=== PATIENT | male | born 1935 | race Caucasian/White ===

== ENCOUNTER 2016-10-07 11:27 | Inpatient (IN) | payer MEDICARE, BC ==
[~2016-10-07] VITALS: Ht 185.4 cm; Wt 113.6 kg
--- NOTE | 2016-10-08 19:19 | ER ---
ADMIT: 10/07/2016 RM/LOC: 423 [facility] MR#: [id number] 2620 [facility] [address] [place], [place] [address] MARIA ESTHER ALLEN [address] [place] [address] Emergency Room Report SEX: M AGE: 80 : 1935 DATE: 10/07/2016 ADDENDUM: A 80-year-old white male with multiple comorbidities, hypertension, and I think he has history lung disease, COPD, GERD as well as heart failure. He also has, I think, valvular disease, not need to be operative on. I refer you to old records for that. He evidently does [facility] as well. At this time, his CBC is negative. His chemistry shows a potassium of 3.0. Chest x-ray, cardiomegaly. Troponin is negative. His lactate is negative. He is not septic. He does not have pneumonia. He has been skipping beats as well. He also noticed that he is coughing up a little bit of blood when he coughs. He is already on Lasix. Increased pedal edema as well as increased shortness of breath. I do believe he sleeps in a chair. At this time, I spoke with Dr. Howard, he will need to admit him. We gave him 40 of Lasix to start. Brennan Zendejas MD/ mecca JOB #: [id number] CC: Sam Nelson MD, Attending Physician Sam Nelson MD, Family Physician
[2016-10-11] MEDS ORDERED: ZESTRIL DPS10 MG PO (13:48)
[2016-10-11] MEDS ORDERED: ULTRAM DPS50 MG PO (13:48)
[2016-10-11] MEDS ORDERED: LASIX DPS40 MG PO (13:49)
[2016-10-11] MEDS ORDERED: ZOLOFT DPS50 MG PO (13:49)
[2016-10-11] MEDS ORDERED: POTASSIUM CHLO20 ME1 PO (13:50)
[2016-10-11] MEDS ORDERED: AUGMENTIN 250250 MG PO (13:50)
[2016-10-11] MEDS ORDERED: [UNRECOGNIZED DRUG - OTHER] (13:51)
[2016-10-11] MEDS ORDERED: DUONEB DPS3 ML IH (13:51)
--- NOTE | 2016-10-13 12:02 | HP ---
ADMIT: 10/07/2016 RM/LOC: 423 [facility] MR#: [id number] [address] [facility] [address] [place], [place] [address] MARIA ESTHER ALLEN [address] [place] [address] History and Physical SEX: M AGE: 80 : 1935 DATE OF SERVICE: CHIEF COMPLAINT AND HISTORY OF PRESENT ILLNESS: This 80-year-old male was admitted with increasing dyspnea, edema, cough, and weakness. The patient has been feeling poorly for the last few weeks. He was seen by a physician in [place], and he has also had a recent echocardiogram. He apparently has an aortic insufficiency, and he has had increasing edema with shortness of breath. He has also had some cough with this, and his current medications include lisinopril, tramadol, Zoloft, Lasix 40 mg daily, and eyedrops with tobramycin, dexamethasone suspension, and potassium chloride 40 mEq daily. The patient initially was seen by myself in the clinic, had gotten worse, went to the emergency room and is admitted for further treatment. The patient was asked to be seen by the drier transfer car operator, and he was placed on increased Lasix. I also felt the patient probably had some bronchitis and was placed on Augmentin. PREVIOUS MEDICAL HISTORY: Generally, his health has been fair. SOCIAL HISTORY: The patient is . 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 He never smokes cigarettes. He had smoked cigars in years past. He also chews tobacco. He drinks occasionally. FAMILY HISTORY: Particularly, ischemic heart disease in father and brother. ALLERGIES: NONE. REVIEW OF SYSTEMS: HEENT: The patient wears glasses. He also has some hearing loss and periodic headaches. CARDIORESPIRATORY: The patient has a history of hypertension. He has had no chest pain. He has had no hemoptysis. He has had dyspnea and edema. He has had a history of pneumonia and a history of aortic insufficiency. GI: The patient has no nausea, vomiting, bloody stools, or diarrhea. : No hematuria or dysuria. He has had a cancer of the bladder. MUSCULOSKELETAL: The patient has had osteoarthritis. He has had a total knee. He has also had back surgery. NEUROPSYCHIATRIC: The patient has a history of depression. PHYSICAL EXAMINATION: VITAL SIGNS: Blood pressure is 137/90, respirations 22, pulse 80, and temperature 98.8. GENERAL: The patient is a well-nourished and well-developed male, who is alert, cooperative, and oriented x3. HEENT: Head - normocephalic without exostoses. SABRA. Throat within normal limits. NECK: Neck veins not distended. Thyroid not enlarged. CHEST: Rales bilaterally. No wheezes are heard. HEART: Regular rhythm with no murmur heard. No clinical evidence of cardiomegaly. ABDOMEN: Soft, nontender. Liver is not enlarged. Spleen is not palpable. No abnormal masses are palpated. Femoral pulses are strong and equal ADMIT: 10/07/2016 RM/LOC: 423 [facility] MR#: [id number] [address] [address] MARIA ESTHER ALLEN [id number] [place] [address] History and Physical SEX: M AGE: 80 : 1935 bilaterally. GENITALIA: Normal. EXTREMITIES: 3+ edema bilaterally. No erythema. ASSESSMENT: 1. Diastolic congestive heart failure. 2. Aortic insufficiency. 3. Hypertension. 4. Glaucoma. 5. History of bladder cancer. 6. Acute bronchitis. 7. History of depression. Sam Nelson MD/ mecca JOB #: [id number] CC: Sam Nelson, Attending Physician Sam Nelson, Family Physician
--- NOTE | 2016-10-13 12:02 | DS ---
ADMIT: 10/07/2016 RM/LOC: 423 [facility] MR#: [id number] 2620 [facility] [address] [place] [id number] MARIA ESTHER ALLEN [address] [place] [address] Discharge Summary SEX: M AGE: 80 : 1935 ADMISSION DATE: 10/07/2016 DISCHARGE DATE: 10/10/2016 HISTORY AND PHYSICAL: Please see the chart. LABORATORY AND X-RAY DATA: Please see the chart. CLINICAL COURSE: This 80-year-old male was admitted with increasing dyspnea and diastolic congestive heart failure. The patient was seen by the cbx operator. He was monitored on telemetry. No acute heart damage was found but he does have diastolic heart failure with severe edema. He was also dyspneic. He was placed on oxygen. He was given Lasix. He lost 18 pounds of fluid in the hospital. He had some atelectasis on the x-ray. He also had a productive cough. He was given antibiotic. He had borderline hypoxemia. The patient refuses any home oxygen and clinically he is much improved. He will be discharged on five more days of Augmentin. He also will continue his eyedrops that Dr. Clements had prescribed. He will also continue his Klor-Con 20 mEq t.i.d., Lasix 80 mg b.i.d. orally, DuoNeb q.i.d. p.r.n., Zoloft 50 mg every night p.r.n., Zestril 10 mg daily. He will be seen in the office in one week. FINAL DIAGNOSIS: 1. Diastolic congestive heart failure. 2. Aortic insufficiency. 3. Hypertension. 4. Acute bronchitis. 5. History of depression. 6. History of bladder cancer. 7. Hypertension. Sam Nelson MD/ jeannie JOB #: [id number] CC: Sam Nelson MD, Attending Physician Sam Nelson MD, Family Physician
--- NOTE | 2016-10-16 15:33 | CO ---
ADMIT: 10/07/2016 RM/LOC: 423 [facility] MR#: [id number] 2620 [facility] [address] [place], [place] [address] MARIA ESTHER ALLEN [address] [place] [address] Consultation SEX: M AGE: 80 : 1935 DATE OF CONSULTATION: 10/08/2016 ATTENDING PHYSICIAN: Sam Nelson CONSULTING PHYSICIAN: Zaheer Lewis MD CHIEF COMPLAINT: Shortness of breath and edema. HISTORY OF PRESENT ILLNESS: The patient is a 80-year-old male, who states in the last couple of months, he has not been feeling well. He has had trouble with more shortness of breath and also developed some edema. 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 He was seen by Dr. Lopez in our clinic several weeks ago. At that time, it was felt that he may have some diastolic heart failure. He was treated with Lasix and also cut back on how much he was eating. He had some improvement, but in the last couple of days, has noticed that he has been more short of breath again. He also had worsening edema. He does not weigh himself on a regular basis, but does think that his weight has gone up a little bit. He has been taking his medicines on a regular basis. He also has a history of some palpitations, which have been stable. He was admitted for the increased swelling and shortness of breath and we are seeing him for further evaluation. PAST MEDICAL HISTORY: 1. Recent diagnosis of diastolic heart failure. 2. Moderate aortic insufficiency by last echocardiogram. 3. Sleep apnea. 4. Hypertension. 5. Adenoidectomy. 6. History of cervical fusion. 7. Right knee arthroplasty. 8. Tonsillectomy. ALLERGIES: NONE. CURRENT HOME MEDICATIONS: 1. Lisinopril 10 mg daily. 2. Zoloft 50 mg daily. 3. Ultram 50 mg 1 to 2 tablets three times daily as needed. 4. Lasix 80 mg daily. 5. Potassium 20 mEq daily. FAMILY HISTORY: Significant for brother, who had a myocardial infarction as well as the father, who had a myocardial infarction. SOCIAL HISTORY: The patient has occasional cigar use, but has not used in many years and did not have a longstanding history of cigar use. He also has chewing tobacco use. He is , but his is currently at a long term setting. 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 ADMIT: 10/07/2016 RM/LOC: 423 [facility] MR#: [id number] [address] [address] ALEJANDROMARIA ESTHER [address] [place] [address] Consultation SEX: M AGE: 80 : 1935 REVIEW OF SYSTEMS: GENERAL: Denies fever, chills, sweats, rash, or weight loss. He has had some fatigue. EYES: Denies double vision, blurred vision, cataracts, or glaucoma. ENT: Denies hearing loss or problems with nose, mouth or throat. PULMONARY: He has had some edema, and he has had shortness of breath. GASTROINTESTINAL: Denies heartburn or difficulty swallowing. No change in bowel habits. Denies dark or bloody stools. No history of ulcers, hiatal hernia, or gallbladder or liver disease. He has recently had some diarrhea. GENITOURINARY: Denies dysuria, hematuria, nocturia, urinary tract infection, or kidney stones. Denies history of renal insufficiency or failure. MUSCULOSKELETAL: He has occasional arm and leg pains as well as some occasional back pain. ENDOCRINE: Denies history of thyroid dysfunction or diabetes. HEMATOLOGIC: Denies history of anemia, easy bruising, or cancer. NEUROLOGIC: Denies chronic headaches, dizziness, syncope, stroke, seizures, numbness, or tingling. PSYCHIATRIC: Denies history of mental illness or feelings of depression. PHYSICAL EXAMINATION: VITAL SIGNS: Blood pressure is 126/70, heart rate 67, respirations 14, and temperature 98.6 degrees Fahrenheit. SKIN: [place], warm, and dry. EYES: Sclerae clear. No xanthelasmas. ENT: Oral mucosa is pink and moist. No jugular venous distention or carotid bruits. CHEST: Respirations are even and unlabored. Lungs having some crackles noted in the bases. HEART: Regular rate and rhythm. Normal S1, S2. No murmurs, rubs or gallops. ABDOMEN: Soft and nontender. MUSCULOSKELETAL: Gait is normal. EXTREMITIES: Peripheral pulses palpable. No clubbing or cyanosis. Mild-to- moderate edema bilaterally. PSYCHIATRIC: Alert and oriented. Mood and affect are appropriate. ASSESSMENT: 1. Shortness of breath. 2. Edema. 3. Acute on chronic diastolic heart failure. 4. Aortic insufficiency. 5. Sleep apnea. 6. Possible chronic obstructive pulmonary disease. 7. Hypokalemia. 8. Hypertension. PLAN: With the patient's shortness of breath, I would like to continue with diuresis. His BNP is not significantly elevated, but he does have some edema, ADMIT: 10/07/2016 RM/LOC: [address] [place] [address] MR#: [id number] [address] [place] [id number] MARIA ESTHER ALLEN [id number] [place], [place] [id number] Consultation SEX: M AGE: 80 : 1935 which all could go along with him having some diastolic heart failure. We will increase his Lasix to 80 mg IV b.i.d. If he continues to have symptoms of what looks like heart failure, we may need to look closely at his aortic valve as this may be actually more than moderately regurgitant. This could be evaluated with KIM if necessary. I believe that he also may have a pulmonic component for his symptoms. I am going to try him on nebulizers and see if he has improvement and at some point, he is going to need PFTs to see if he has any evidence of obstruction or restriction. We will continue supplementing his potassium as this has been low. Further evaluation and treatment to follow once we see how he responds to these treatments. Zaheer Lewis MD/ mecca JOB #: [id number] CC: Sam Nelson, Attending Physician Sam Nelson, Family Physician Sam Nelson MD
== END 2016-10-10 13:50 | disposition home or self-care (01) | DRG 293 ==
LOC: ER 11:27 → 4PCU 13:47
DX: I11.0 Hypertensive heart disease with heart failure (principal); I35.1 Nonrheumatic aortic (valve) insufficiency; J20.9 Acute bronchitis, unspecified; I50.33 Acute on chronic diastolic (congestive) heart failure; E87.6 Hypokalemia; K21.9 Gastro-esophageal reflux disease without esophagitis; H40.9 Unspecified glaucoma; E66.9 Obesity, unspecified; Z68.33 Body mass index [BMI] 33.0-33.9, adult; F32.9 Major depressive disorder, single episode, unspecified; M19.90 Unspecified osteoarthritis, unspecified site; F17.220 Nicotine dependence, chewing tobacco, uncomplicated; G47.30 Sleep apnea, unspecified; Z98.1 Arthrodesis status; Z96.651 Presence of right artificial knee joint; Z82.49 Family history of ischemic heart disease and other diseases of the circulatory system; Z85.51 Personal history of malignant neoplasm of bladder